=== PATIENT | female | born 1995 | race Caucasian/White ===

== ENCOUNTER 2023-07-12 19:25 | Emergency (ER) | payer MEDICAID ==
[~2023-07-12] VITALS: Ht 167.6 cm; Wt 100.0 kg
[2023-07-12 20:07] VITALS: BP 136/92; PULSE 87; TEMP 97.6; O2SAT 100
[2023-07-12 21:06] LABS: STREP A SCREEN POSITIVE (Neg)
[2023-07-12] MEDS ORDERED: CLIN300C54 PO (21:51)
[2023-07-12] MEDS ORDERED: ketorolac trometh inj. 60 MG/2 ML VIAL IM ONE (21:55)
[2023-07-12] MEDS ORDERED: ketorolac trometh. 30mg/ml inj. IM ONE (22:15)
[2023-07-12 22:33] VITALS: RESP 17
[2023-07-12] MEDS: ketorolac tromethamine 15mg/ml inj. IM ONE (22:33)
[2023-07-12] MEDS: dexamethasone sod phosphate 10mg/ml inj PO STA (22:33)
== END 2023-07-12 22:38 | disposition home or self-care (01) ==
LOC: ER 19:26
DX: J02.0 Streptococcal pharyngitis (principal); Z88.0 Allergy status to penicillin; Z88.1 Allergy status to other antibiotic agents
CPT/HCPCS: 87880; 96372; 99283; J1100; J1885